=== PATIENT | female | born 1955 ===

== ENCOUNTER 2018-10-02 19:59 | Inpatient (IN) | payer MEDICAID ==
[2018-10-02] MEDS ORDERED: Albuterol-Ipratrop 3 mg / 0.5 (3 ml) UD ONE ×3 (20:16→22:09)
[2018-10-02] MEDS ORDERED: Albuterol-Ipratrop 3 mg / 0.5 (3 ml) UD INH STA ×2 (20:55→21:53)
[2018-10-02 21:04] LABS: BASO # 0.1 K/uL (0.0-0.2); BASO % 0.7 % (0.0-2.0); EOS # 0.7 K/uL (0.0-0.7); EOS % 8.6 % (0.0-4.0); LYMPH # 1.6 K/uL (1.0-4.3); LYMPH % 20.1 % (20.0-40.0); MEAN CORPUSCULAR HEMOGLOBIN 28.3 pg (27.0-31.0); MEAN CORPUSCULAR HGB CONC 33.7 g/dL (33.0-37.0); MEAN PLATELET VOLUME 9.1 fL (7.2-11.7); MONO # 0.7 K/uL (0.0-0.8); MONO % 9.2 % (0.0-10.0); NEUT # 4.9 K/uL (1.8-7.0); NEUT % 61.4 % (50.0-75.0); RBC 4.94 Mil/uL (3.80-5.20); RED CELL DISTRIBUTION WIDTH 12.6 % (11.5-14.5)
[2018-10-02 21:05] LABS: MEAN CELL VOLUME 84.2 fL (81.0-99.0)
[2018-10-02 21:19] LABS: ALB/GLOB RATIO 1.6 (1.0-2.1); ALBUMIN 4.6 g/dL (3.5-5.0); ALT/SGPT 60 U/L (9-52); AST/SGOT 44 U/L (14-36); BLOOD UREA NITROGEN 18 mg/dL (7-17); CALCIUM 9.5 mg/dl (8.6-10.4); GFR NON-AFRICAN AMERICAN > 60
[2018-10-02 21:27] LABS: B-TYPE NATRIURETIC PEPTIDE 33.3 pg/mL (0-900)
--- NOTE | 2018-10-02 21:51 | C.PDOC ---
History Of Present Illness 63 year old female presents to the ER with a complaint of cough, wheezing, and SOB for the past 3 days. Patient smokes a pack a day x40 years. Denies fever. Time Seen by Provider: 10/02/18 20:47 Chief Complaint (Nursing): Shortness Of Breath History Per: Patient History/Exam Limitations: no limitations Onset/Duration Of Symptoms: Days (3) Current Symptoms Are (Timing): Still Present Current Respiratory Medications: See Home Med List Associated Symptoms: Other (Cough, Wheezing, SOB). denies: Fever Recent travel outside of the [place]: No Past Medical History Reviewed: Historical Data, Nursing Documentation, Vital Signs Vital Signs: Last Vital Signs Temp 99.2 F 10/02/18 20:16 Pulse 108 H 10/02/18 20:16 Resp 24 10/02/18 20:16 BP 137/82 10/02/18 20:16 Pulse Ox 96 10/02/18 20:16 - Medical History PMH: Arthritis (RA), Asthma, Colonic Polyps, Diabetes, Gastritis, Hyperlipidemia, Osteoporosis Family History: States: Unknown Family Hx - Social History Hx Tobacco Use: Yes Hx Alcohol Use: No Hx Substance Use: No - Immunization History Hx Tetanus Toxoid Vaccination: No Hx Influenza Vaccination: Yes Hx Pneumococcal Vaccination: No Review Of Systems Constitutional: Negative for: Fever, Chills Cardiovascular: Negative for: Chest Pain, Palpitations Respiratory: Positive for: Cough, Shortness of Breath, Wheezing Gastrointestinal: Negative for: Nausea, Vomiting Neurological: Negative for: Weakness, Numbness Physical Exam - Physical Exam Appears: Non-toxic, Other (Thin, Smells of cigarettes) Skin: Normal Color, Warm, Dry Head: Atraumatic, Normacephalic Eye(s): bilateral: Normal Inspection Oral Mucosa: Moist Neck: Normal, Supple Chest: Symmetrical, No Tenderness Cardiovascular: Rhythm Regular Respiratory: No Rales, Rhonchi (Scattered), Wheezing, Other (Moderate air movement) Gastrointestinal/Abdominal: No Soft, Tenderness Neurological/Psych: Oriented x3, Normal Speech ED Course And Treatment - Laboratory Results Result Diagrams: 10/02/18 21:00 10/02/18 21:00 Lab Interpretation: Normal (trop/bnp neg.) ECG: Interpreted By La ECG Rhythm: Sinus Rhythm ECG Interpretation: Normal Rate From EC O2 Sat by Pulse Oximetry: 96 (Room air) Pulse Ox Interpretation: Normal - Radiology CXR: Interpreted by Me CXR Interpretation: Yes: Other (+ hyperinflated, no pna/pnx) Reevaluation Time: 21:52 (louder rhonci and wheezing but with better air movement) Reassessment Condition: Improved - Physician Consult Information Outcome Of Conversation: [id number]: d/w Dr. Cardona- Hospitalist covering pts for Dr. Dmitri Robledo ok to admit. Critical Care Time - Critical Care Note Total Time (in mins): 90 Documented critical care: time excludes all time spent performing seperately billable procedures. Medical Decision Making Medical Decision Makin pk/yrs, 1ppd defer abx for now. Disposition Doctor Will See Patient In The: Hospital Counseled Patient/Family Regarding: Studies Performed, Diagnosis - Disposition Disposition: HOSPITALIZED Disposition Time: 21:53 Condition: GOOD - Clinical Impression Clinical Impression: COPD exacerbation - Scribe Statement The provider has reviewed the documentation as recorded by the Scribe Lefty Plunkett All medical record entries made by the Scribe were at my direction and persona lly dictated by me. I have reviewed the chart and agree that the record accurately reflects my personal performance of the history, physical exam, medical decision making, and the department course for this patient. I have also personally directed, reviewed, and agree with the discharge instructions and disposition.
--- NOTE | 2018-10-03 00:45 | CP.PCM.HP ---
<Clay Yost - Last Filed: 10/03/18 06:58> History of Present Illness - History of Present Illness History of Present Illness: CC "shortness of breath" HPI: Patient is a 63 year old female with history of RA, DM, osteopenia, COPD, GERD who presents for 2 week history of progressively worsening shortness of breath with wheezing. She states she feels congestion in her chest but her cough is dry and nonproductive in nature. She also complains of back pain related to her rheumatoid arthritis. She denies fevers, chills, headache, dizziness, chest pain, palpitations, abdominal pain, nausea, vomiting, diarrhea, constipation, leg pain, leg swelling. She admits to weight loss of 10lbs over the past year. She states she traveled to [place] in July for her sister's and has been short of breath since. She initially went to her PMD who gave her a cough syrup which improved her symptoms, but over the past 2 weeks her symptoms have only worsened. She recently received pneumonia and flu vaccine. PMD: Dr. Jimbo Robledo PMH: RA, DM, osteopenia, COPD, GERD PSH: hernia Social hx: smokes 1ppd x40 years, denies alcohol or drug use. Family hx: Mother of DM at age 85, Father of stroke at age 84. Home meds: Ventolin, Glimepiride 4mg, Omeprazole 20mg, Metformin 500mg, Tramadol 50mg, Multivitamin, Baclofen 10mg, Vitamin D 5000 units, Fenofibrate 134mg Allergies: NKDA Present on Admission - Present on Admission Any Indicators Present on Admission: No Review of Systems - Constitutional Constitutional: Weight Loss (10lb weight loss over the past year). absent: Chills, Fever, Headache - EENT Eyes: absent: Blurred Vision, Loss of Vision Nose/Mouth/Throat: absent: Nasal Congestion, Sore Throat - Cardiovascular Cardiovascular: Dyspnea. absent: Palpitations, Syncope - Respiratory Respiratory: Cough, Dyspnea, Chest Congestion - Gastrointestinal Gastrointestinal: absent: Abdominal Pain, Diarrhea, Nausea, Vomiting - Genitourinary Genitourinary: absent: Difficulty Urinating, Dysuria - Musculoskeletal Musculoskeletal: Back Pain. absent: Neck Pain, Numbness, Stiffness, Tingling - Neurological Neurological: absent: Confusion, Numbness, Syncope, Tingling - Psychiatric Psychiatric: absent: Anxiety, Depression Past Patient History - Infectious Disease Hx of Infectious Diseases: None - Past Social History Smoking Status: Heavy Smoker > 10 Cigarettes Daily - CARDIAC Hx Cardiac Disorders: Yes - PULMONARY Hx Asthma: Yes - ENDOCRINE/METABOLIC Hx Endocrine Disorders: Yes Hx Diabetes Mellitus Type 2: Yes - MUSCULOSKELETAL/RHEUMATOLOGICAL Hx Arthritis: Yes (RA) Hx Osteoporosis: Yes - GASTROINTESTINAL Hx Gastritis: Yes - PSYCHIATRIC Hx Substance Use: No - SURGICAL HISTORY Hx Surgeries: Yes Other/Comment: Uterine Fibroid removal - ANESTHESIA Hx Anesthesia: Yes Hx Anesthesia Reactions: No Meds Allergies/Adverse Reactions: Allergies Allergy/AdvReac Type Severity Reaction Status Date / Time No Known Allergies Allergy Verified 12/13/16 10:47 Physical Exam - Constitutional Appears: Non-toxic Additional comments: Patient appears short of breath - Head Exam Head Exam: ATRAUMATIC, NORMOCEPHALIC - Eye Exam Eye Exam: EOMI. absent: Conjunctival injection, Periorbital swelling - ENT Exam ENT Exam: Mucous Membranes Moist - Neck Exam Neck exam: Positive for: Full Rom. Negative for: Lymphadenopathy, Tenderness, Thyromegaly - Respiratory Exam Respiratory Exam: Wheezes (diffusely ). absent: Chest Wall Tenderness, Rales, Rhonchi, Respiratory Distress, Stridor - Cardiovascular Exam Cardiovascular Exam: Tachycardia, +S1, +S2. absent: Gallop, Rubs, Systolic Murmur - GI/Abdominal Exam GI & Abdominal Exam: Normal Bowel Sounds, Soft. absent: Distended, Firm, Guarding, Hernia, Rigid, Tenderness - Extremities Exam Extremities exam: Positive for: normal capillary refill, pedal pulses present. Negative for: calf tenderness, pedal edema - Back Exam Back exam: absent: CVA tenderness (L), CVA tenderness (R), rash noted Additional comments: reproducible tenderness on back near lower thoracic and upper lumbar region along spine - Neurological Exam Neurological exam: Alert, CN II-XII Intact, Oriented x3 - Psychiatric Exam Psychiatric exam: Normal Affect, Normal Mood - Skin Skin Exam: Dry, Intact, Warm Results - Vital Signs Recent Vital Signs: Last Vital Signs Temp 98.1 F 10/02/18 23:34 Pulse 110 H 10/02/18 23:34 Resp 26 H 10/02/18 23:34 BP 142/80 10/02/18 23:34 Pulse Ox 93 L 10/02/18 23:34 - Labs Result Diagrams: 10/03/18 06:04 10/03/18 06:04 Labs: Laboratory Results - last 24 hr 10/02/18 10/02/18 10/02/18 20:16 21:00 21:00 WBC 8.0 RBC 4.94 Hgb 14.0 Hct 41.6 MCV 84.2 D MCH 28.3 MCHC 33.7 RDW 12.6 Plt Count 172 MPV 9.1 Neut % (Auto) 61.4 Lymph % (Auto) 20.1 [place] % (Auto) 9.2 Eos % (Auto) 8.6 H Baso % (Auto) 0.7 Neut # (Auto) 4.9 Lymph # (Auto) 1.6 [place] # (Auto) 0.7 Eos # (Auto) 0.7 Baso # (Auto) 0.1 Sodium 138 Potassium 3.7 Chloride 102 Carbon Dioxide 26 Anion Gap 14 BUN 18 H Creatinine 0.7 Est GFR ( Amer) > 60 Est GFR (Non-Af Amer) > 60 POC Glucose (mg/dL) 117 H Random Glucose 151 H Calcium 9.5 Total Bilirubin 0.6 AST 44 H ALT 60 H Alkaline Phosphatase 83 Troponin I < 0.0120 NT-Pro-B Natriuret Pep 33.3 Total Protein 7.6 Albumin 4.6 Globulin 2.9 Albumin/Globulin Ratio 1.6 Assessment & Plan - Assessment and Plan (Free Text) Assessment: 63 year old female with history of RA, DM, osteopenia, COPD, GERD who presents for 2 week history of progressively worsening shortness of breath and cough. Plan: Shortness of breath Solumedrol 40mg IV Q12 Duonebs Q6 ABELARDO Albuterol Q3 PRN Pulmicort 0.5mg BID Doxycycline 100mg PO BID Will need to follow up with pattern carrier outpatient for PFTs, Advair and Spiriva on discharge as patient is only on Ventolin as needed. CXR: hyperinflated Hx of DM Type 2 Low dose ISS Accucheck ACHS Amaryl 2mg BID Metformin 500mg daily Hx of RA Tramadol PRN Hx of HLD Fenofibrate 145mg QPM Hx of nicotine dependence Nicotine patch PPX: Heparin Pepcid Heart healthy diet, 2g Na Case discussed with Dr. Dulce Yost, PGY1 <DulceLux P - Last Filed: 10/03/18 07:58> Results - Vital Signs Recent Vital Signs: Last Vital Signs Temp 97.4 F L 10/03/18 04:40 Pulse 99 H 10/03/18 04:40 Resp 20 10/03/18 04:40 BP 120/74 10/03/18 04:40 Pulse Ox 96 10/03/18 04:40 - Labs Result Diagrams: 10/03/18 06:04 10/03/18 06:04 Labs: Laboratory Results - last 24 hr 10/02/18 10/02/18 10/02/18 20:16 21:00 21:00 WBC 8.0 RBC 4.94 Hgb 14.0 Hct 41.6 MCV 84.2 D MCH 28.3 MCHC 33.7 RDW 12.6 Plt Count 172 MPV 9.1 Neut % (Auto) 61.4 Lymph % (Auto) 20.1 [place] % (Auto) 9.2 Eos % (Auto) 8.6 H Baso % (Auto) 0.7 Neut # (Auto) 4.9 Lymph # (Auto) 1.6 [place] # (Auto) 0.7 Eos # (Auto) 0.7 Baso # (Auto) 0.1 Sodium 138 Potassium 3.7 Chloride 102 Carbon Dioxide 26 Anion Gap 14 BUN 18 H Creatinine 0.7 Est GFR ( Amer) > 60 Est GFR (Non-Af Amer) > 60 POC Glucose (mg/dL) 117 H Random Glucose 151 H Calcium 9.5 Phosphorus Magnesium Total Bilirubin 0.6 AST 44 H ALT 60 H Alkaline Phosphatase 83 Troponin I < 0.0120 NT-Pro-B Natriuret Pep 33.3 Total Protein 7.6 Albumin 4.6 Globulin 2.9 Albumin/Globulin Ratio 1.6 10/03/18 10/03/18 06:04 06:04 WBC 6.4 RBC 4.82 Hgb 13.7 Hct 39.8 MCV 82.6 MCH 28.4 MCHC 34.4 RDW 12.4 Plt Count 165 MPV 8.9 Neut % (Auto) 86.7 H Lymph % (Auto) 11.8 L [place] % (Auto) 1.2 Eos % (Auto) 0.2 Baso % (Auto) 0.1 Neut # (Auto) 5.6 Lymph # (Auto) 0.8 L [place] # (Auto) 0.1 Eos # (Auto) 0.0 Baso # (Auto) 0.0 Sodium 136 Potassium 4.0 Chloride 99 Carbon Dioxide 25 Anion Gap 17 BUN 18 H Creatinine 0.5 L Est GFR ( Amer) > 60 Est GFR (Non-Af Amer) > 60 POC Glucose (mg/dL) Random Glucose 288 H D Calcium 9.3 Phosphorus 3.5 Magnesium 1.6 Total Bilirubin 0.5 AST 40 H ALT 64 H Alkaline Phosphatase 78 Troponin I NT-Pro-B Natriuret Pep Total Protein 7.2 Albumin 4.3 Globulin 2.8 Albumin/Globulin Ratio 1.6 Attending/Attestation - Attestation I have personally seen and examined this patient.: Yes I have fully participated in the care of the patient.: Yes I have reviewed all pertinent clinical information: Yes Notes (Text): 10/03/18 07:55 * Copd exacerbation, bronchitis and emphysematous chest * NIDDM * Tobacco abuse * H/o RA * H/o htn Plan * Counselled about tobacco cessation * Will need inhaled steroid/bronchodilator combination upon discharge with out patient pulm f/u for PFT's * In patient systemic steroid, inhaled steroid, scheduled and prn broncodialators, oral doxycycline * GI/DVT prophylaxis * Home meds, insulin sliding scale * See orders for detail.
[2018-10-03 00:50] VITALS: RESP 20
[2018-10-03] MEDS ORDERED: Albuterol 0.042% Inhal Sol (1.25 mg/3 mL) UD INH PRN (01:01)
[2018-10-03 06:12] LABS: BASO % 0.1 % (0.0-2.0); EOS % 0.2 % (0.0-4.0); HEMOGLOBIN 13.7 g/dL (11.0-16.0); LYMPH # 0.8 K/uL (1.0-4.3); LYMPH % 11.8 % (20.0-40.0); MEAN CELL VOLUME 82.6 fL (81.0-99.0); MEAN CORPUSCULAR HEMOGLOBIN 28.4 pg (27.0-31.0); MEAN CORPUSCULAR HGB CONC 34.4 g/dL (33.0-37.0); MEAN PLATELET VOLUME 8.9 fL (7.2-11.7); MONO # 0.1 K/uL (0.0-0.8); MONO % 1.2 % (0.0-10.0); NEUT # 5.6 K/uL (1.8-7.0); NEUT % 86.7 % (50.0-75.0); RBC 4.82 Mil/uL (3.80-5.20); RED CELL DISTRIBUTION WIDTH 12.4 % (11.5-14.5); WHITE BLOOD COUNT 6.4 K/uL (4.8-10.8)
[2018-10-03 06:27] LABS: ALB/GLOB RATIO 1.6 (1.0-2.1); ALBUMIN 4.3 g/dL (3.5-5.0); ALT/SGPT 64 U/L (9-52); AST/SGOT 40 U/L (14-36); BLOOD UREA NITROGEN 18 mg/dL (7-17); CALCIUM 9.3 mg/dl (8.6-10.4); GFR NON-AFRICAN AMERICAN > 60
[2018-10-03] MEDS ORDERED: Dextrose 50% SYRINGE Inj (50 ml) IV PRN (07:04)
[2018-10-03] MEDS ORDERED: Glucagon Recombinant 1 mg Inj IM PRN (07:04)
--- NOTE | 2018-10-03 08:16 | RAD ---
Date of service: 10/02/2018 PROCEDURE: CHEST RADIOGRAPH, 1 VIEW HISTORY: SOB COMPARISON: 01/17/2018 FINDINGS: LUNGS: Bilateral hyperaeration. No consolidative infiltrate appreciated. PLEURA: No pneumothorax or pleural fluid seen. CARDIOVASCULAR: There is absence of aortic atherosclerotic calcification on x-ray. Normal heart size. No significant appearing pulmonary venous congestion. OSSEOUS STRUCTURES: Mild thoracic spondylosis. Bilateral mild shoulder arthrosis. VISUALIZED UPPER ABDOMEN: Normal. OTHER FINDINGS: None. IMPRESSION: No interval acute cardiopulmonary pathology appreciated. Hyperinflation consistent with background COPD-similar in appearance
[2018-10-03] MEDS: (Novolin R) Insulin Human Regular 100 units/ml vial SC SCH ×4 (08:21→21:57)
--- NOTE | 2018-10-03 10:27 | CP.PCM.PN ---
Subjective - Date & Time of Evaluation Date of Evaluation: 10/03/18 Time of Evaluation: 10:15 - Subjective Subjective: PGY-1 Medicine Progress Note for Dr. Marrero Patient was seen and examined today at bedside in no acute distress. Nurse reports no overnight events. Patient reports improved breathing, but still has persistent pain in her knees from arthritis, headache, and shoulder pain. Denies chest pain, abdominal pain, difficulty urinating, n/v/c/d. She is hesitant to quit smoking despite knowing how it harms her lungs. Objective - Vital Signs/Intake and Output Vital Signs (last 24 hours): Temp Pulse Resp BP Pulse Ox 97.6 F 91 H 20 130/70 96 10/03/18 07:00 10/03/18 07:00 10/03/18 07:00 10/03/18 07:00 10/03/18 07:00 Intake and Output: 10/03/18 10/03/18 06:59 18:59 Intake Total 120 Balance 120 - Medications Medications: Current Medications Acetaminophen (Tylenol 325mg Tab) 650 mg PO Q6 PRN PRN Reason: Pain, Mild (1-3) Albuterol Sulfate (Albuterol 0.042% Inhal Lisa (1.25mg/3ml) Ud) 1.25 mg INH RQ3 PRN PRN Reason: Shortness of Breath Albuterol/Ipratropium (Duoneb 3 Mg/0.5 Mg (3 Ml) Ud) 3 ml INH RQ6 ABELARDO Budesonide (Pulmicort Respules) 0.5 mg INH RQ12 ABELARDO Dextrose (Dextrose 50% Inj) 0 ml IV STAT PRN; Protocol PRN Reason: Hypoglycemia Protocol Dextrose (Glutose 15) 0 gm PO ONCE PRN; Protocol PRN Reason: Hypoglycemia Protocol Doxycycline Hyclate (Doryx) 100 mg PO Q12H ABELARDO; Protocol Last Admin: 10/03/18 01:35 Dose: 100 mg Famotidine (Pepcid) 20 mg PO DAILY ABELARDO Fenofibrate (Tricor) 145 mg PO QPM ABELARDO Glimepiride (Amaryl) 2 mg PO BID ABELARDO Glucagon (Glucagen Diagnostic Kit) 0 mg IM STAT PRN; Protocol PRN Reason: Hypoglycemia Protocol Heparin Sodium (Porcine) (Heparin) 5,000 units SC Q8 ABELARDO Last Admin: 10/03/18 06:37 Dose: 5,000 units Dextrose (Dextrose 5% In Water 1000 Ml) 1,000 mls @ 0 mls/hr IV .Q0M PRN; Protocol PRN Reason: Hypoglycemia Protocol Insulin Human Regular (Novolin R) 0 unit SC ACHS [facility]; Protocol Last Admin: 10/03/18 08:21 Dose: 3 u Metformin HCl (Glucophage) 500 mg PO DAILY [facility] Methylprednisolone (Solu-Medrol) 40 mg IVP Q12 [facility] Nicotine (Nicoderm Cq) 1 patch TD DAILY [facility] Tramadol HCl (Ultram) 50 mg PO DAILY PRN PRN Reason: Pain, moderate (4-7) - Labs Labs: 10/03/18 06:04 10/03/18 06:04 - Constitutional Appears: No Acute Distress, Older Than Stated Age - Head Exam Head Exam: ATRAUMATIC, NORMOCEPHALIC - Eye Exam Eye Exam: EOMI, Normal appearance - ENT Exam ENT Exam: Mucous Membranes Dry - Respiratory Exam Respiratory Exam: Decreased Breath Sounds, Rhonchi, Wheezes. absent: Accessory Muscle Use Additional comments: 2L O2 via NC inspiratory and expiratory wheezes throughout distant breath sounds more prominent in lower lobes - Cardiovascular Exam Cardiovascular Exam: Tachycardia, +S1, +S2. absent: Gallop, Rubs, Murmur - GI/Abdominal Exam GI & Abdominal Exam: Soft, Normal Bowel Sounds. absent: Distended, Firm, Guarding, Tenderness - Extremities Exam Extremities Exam: Normal Capillary Refill. absent: Calf Tenderness Additional comments: IV access in R AC peripheral pulses palpable bilaterally (radial, PT) - Neurological Exam Neurological Exam: Alert, Awake, Normal Gait, Oriented x3 - Psychiatric Exam Psychiatric exam: Anxious - Skin Skin Exam: Dry, Normal Color Assessment and Plan - Assessment and Plan (Free Text) Assessment: 63yoF PMH COPD, RA, DM, osteopenia, GERD admitted for COPD exacerbation. Plan: COPD exacerbation - CXR (10/02): no interval acute cardiopulmonary pathology. Hyperinflation. - EKG: sinus tachy @ 98 - Duoneb x2, Solumedrol given in ED - f/u Legionella, Strep - Albuterol q3 prn - Duoneb rq6 - Solumedrol 40mg IVP q12 - Pulmicort 0.5mg INH rq12 - Doxycycline 100mg po q12 (started 10/03) - Flonase daily Diabetes Mellitus - Amaryl 2mg po bid - Metformin 500mg po daily - Accucheck ACHS - low dose ISS - hypoglycemia protocol Rheumatoid Arthritis - Tylenol 650mg po q6 prn - Tramadol 50mg po daily prn Hyperlipidemia - Fenofibrate 145mg po HS Tobacco use - Nicotine patch 14mg/day 1 patch td daily - educated on cessation. not interested PPx - DVT: Heparin 5000u sc q8, SCDs - GI: Pepcid 20mg po daily - Diet: HHD, 2g Na. [employer]m [employer] referral for recent weight loss Dispo: Patient can potentially go home tomorrow. Patient MUST follow up with PMD as she is only on Ventolin prn at the moment. That is not sufficient given her extensive tobacco history and severity of emphysema/COPD. d/w Dr. Elida Combs PGY-1
[2018-10-03] MEDS: MethylPREDNISolone 40 mg Vial IVP SCH ×2 (10:31→22:01)
[2018-10-03] MEDS: Fluticasone Nasal 50 mcg/Spray NAS SCH (11:38)
[2018-10-03] MEDS: Budesonide 0.5 mg/2 ml Inhal Susp UD INH SCH (19:29)
[2018-10-03] MEDS: Albuterol-Ipratrop 3 mg / 0.5 (3 ml) UD INH SCH (19:29)
--- NOTE | 2018-10-03 22:21 | CARD ---
APPROVED REPORT Date of service: 10/02/2018 EKG Measurement Heart [id number] <Conclusion> Normal sinus rhythm Left axis deviation Low voltage QRS Abnormal ECG
[2018-10-04] MEDS: Albuterol-Ipratrop 3 mg / 0.5 (3 ml) UD INH SCH ×2 (01:45→08:41)
[2018-10-04 07:03] LABS: BASO % 0.2 % (0.0-2.0); HEMOGLOBIN 13.7 g/dL (11.0-16.0); LYMPH # 1.4 K/uL (1.0-4.3); LYMPH % 11.5 % (20.0-40.0); MEAN CELL VOLUME 84.1 fL (81.0-99.0); MEAN CORPUSCULAR HEMOGLOBIN 28.3 pg (27.0-31.0); MEAN CORPUSCULAR HGB CONC 33.6 g/dL (33.0-37.0); MEAN PLATELET VOLUME 9.3 fL (7.2-11.7); MONO # 0.6 K/uL (0.0-0.8); MONO % 5.4 % (0.0-10.0); NEUT % 82.9 % (50.0-75.0); RBC 4.85 Mil/uL (3.80-5.20); WHITE BLOOD COUNT 12.1 K/uL (4.8-10.8)
[2018-10-04 07:35] LABS: ALB/GLOB RATIO 1.5 (1.0-2.1); ALBUMIN 4.4 g/dL (3.5-5.0); ALT/SGPT 48 U/L (9-52); AST/SGOT 27 U/L (14-36); BLOOD UREA NITROGEN 22 mg/dL (7-17); CALCIUM 9.2 mg/dl (8.6-10.4); GFR NON-AFRICAN AMERICAN > 60
[2018-10-04] MEDS: (Novolin R) Insulin Human Regular 100 units/ml vial SC SCH ×2 (08:01→12:28)
[2018-10-04 08:36] VITALS: BP 125/73; PULSE 77; TEMP 97.9; O2SAT 94
[2018-10-04] MEDS: Budesonide 0.5 mg/2 ml Inhal Susp UD INH SCH (08:41)
[2018-10-04] MEDS ORDERED: guaiFENesin DM 200 mg-20 mg/10 ml UD PO PRN (09:40)
[2018-10-04] MEDS: Fluticasone Nasal 50 mcg/Spray NAS SCH (09:48)
[2018-10-04] MEDS: MethylPREDNISolone 40 mg Vial IVP SCH (09:49)
--- NOTE | 2018-10-04 11:43 | CP.PCM.DIS ---
<CombsSana Curtis - Last Filed: 10/04/18 13:31> Provider - Provider Date of Admission: 10/02/18 21:54 Attending physician: Lux Cardona MD Consults: 10/03/18 03:07 Inpatient [employer] Core Measures Referral Routine Comment: C/O SOB upon Admission. Physician Instructions: Reason For Exam: SOB Time Spent in preparation of Discharge (in minutes): 45 Diagnosis - Discharge Diagnosis (1) COPD exacerbation Status: Acute Hospital Course - Lab Results Lab Results: Most Recent Lab Values WBC 12.1 K/uL (4.8-10.8) H D 10/04/18 06:56 RBC 4.85 Mil/uL (3.80-5.20) 10/04/18 06:56 Hgb 13.7 g/dL (11.0-16.0) 10/04/18 06:56 Hct 40.8 % (34.0-47.0) 10/04/18 06:56 MCV 84.1 fL (81.0-99.0) 10/04/18 06:56 MCH 28.3 pg (27.0-31.0) 10/04/18 06:56 MCHC 33.6 g/dL (33.0-37.0) 10/04/18 06:56 RDW 13.0 % (11.5-14.5) 10/04/18 06:56 Plt Count 205 K/uL (130-400) 10/04/18 06:56 MPV 9.3 fL (7.2-11.7) 10/04/18 06:56 Neut % (Auto) 82.9 % (50.0-75.0) H 10/04/18 06:56 Lymph % (Auto) 11.5 % (20.0-40.0) L 10/04/18 06:56 [place] % (Auto) 5.4 % (0.0-10.0) 10/04/18 06:56 Eos % (Auto) 0.0 % (0.0-4.0) 10/04/18 06:56 Baso % (Auto) 0.2 % (0.0-2.0) 10/04/18 06:56 Neut # (Auto) 10.0 K/uL (1.8-7.0) H 10/04/18 06:56 Lymph # (Auto) 1.4 K/uL (1.0-4.3) 10/04/18 06:56 [place] # (Auto) 0.6 K/uL (0.0-0.8) 10/04/18 06:56 Eos # (Auto) 0.0 K/uL (0.0-0.7) 10/04/18 06:56 Baso # (Auto) 0.0 K/uL (0.0-0.2) 10/04/18 06:56 Sodium 137 mmol/L (132-148) 10/04/18 06:56 Potassium 4.1 mmol/L (3.6-5.2) 10/04/18 06:56 Chloride 102 mmol/L (98-107) 10/04/18 06:56 Carbon Dioxide 24 mmol/L (22-30) 10/04/18 06:56 Anion Gap 15 (10-20) 10/04/18 06:56 BUN 22 mg/dL (7-17) H 10/04/18 06:56 Creatinine 0.5 mg/dL (0.7-1.2) L 10/04/18 06:56 Est GFR ( Amer) > 60 10/04/18 06:56 Est GFR (Non-Af Amer) > 60 10/04/18 06:56 POC Glucose (mg/dL) 265 mg/dL (65-110) H 10/04/18 06:15 Random Glucose 258 mg/dL (65-105) H 10/04/18 06:56 Calcium 9.2 mg/dl (8.6-10.4) 10/04/18 06:56 Phosphorus 3.5 mg/dL (2.5-4.5) 10/03/18 06:04 Magnesium 1.6 mg/dL (1.6-2.3) 10/03/18 06:04 Total Bilirubin 0.5 mg/dL (0.2-1.3) 10/04/18 06:56 AST 27 U/L (14-36) 10/04/18 06:56 ALT 48 U/L (9-52) 10/04/18 06:56 Alkaline Phosphatase 78 U/L (38-126) 10/04/18 06:56 Troponin I < 0.0120 ng/mL (0.00-0.120) 10/02/18 21:00 NT-Pro-B Natriuret Pep 33.3 pg/mL (0-900) 10/02/18 21:00 Total Protein 7.3 g/dL (6.3-8.3) 10/04/18 06:56 Albumin 4.4 g/dL (3.5-5.0) 10/04/18 06:56 Globulin 2.9 gm/dL (2.2-3.9) 10/04/18 06:56 Albumin/Globulin Ratio 1.5 (1.0-2.1) 10/04/18 06:56 - Hospital Course Hospital Course: Patient is a 63 year old female with history of RA, DM, osteopenia, COPD, GERD who presents for 2 week history of progressively worsening shortness of breath with wheezing. She states she feels congestion in her chest but her cough is dry and nonproductive in nature. She also complains of back pain related to her rheumatoid arthritis. She denies fevers, chills, headache, dizziness, chest pain, palpitations, abdominal pain, nausea, vomiting, diarrhea, constipation, leg pain, leg swelling. She admits to weight loss of 10lbs over the past year. She states she traveled to [place] in July for her sister's and has been short of breath since. She initially went to her PMD who gave her a cough syrup which improved her symptoms, but over the past 2 weeks her symptoms have only worsened. She recently received pneumonia and flu vaccine. CXR showed no interval acute cardiopulmonary pathology, hyperinflation consistent with COPD. Duonebs x2 and Solumedrol were given in the ED. She was started on Duonebs and Solumderol ATC with Albuterol rescue fro breathing. We also gave her Doxycycline while hospitalized. Pulmicort was added the second day to aid her respirations. To stop her from smoking, we started her on nicotine patch, which continued into discharge since she's understanding of how it can worsen her COPD. Her chronic issues of DM, RA, and HLD were controlled on her home medications. She is breathing much better and feels ready to go home. Primary Diagnosis: COPD exacerbation Patient is clear for discharge per Dr. Marrero. She is being started on a few new medications and should take them as directed: Albuterol (Ventolin). This is her rescue inhaler. Take 1 puff as needed Pulmicort (budesonide) 90mcg. This is her maintenance inhaler. Take 1 puff every day even if she's not having trouble breathing Spiriva (tiotropium) 18mcg. This is another maintenance inhaler. Take 1 puff every day even if she's not having trouble breathing Nicotine patch 14mg/24hr. Switch out the patch once a day She is to follow up with her PMD Dr. Jimbo Robledo within 1 week to discuss continuing her COPD medications as well as continuing her smoking cessation. She must stop smoking or she will have more breathing problems. If her condition worsens and she is unable to breath, please return to the ED. This was discussed with patient with at bedside through [employer] Naur[place] speaker child and youth program assistant. The patient understood and agreed with the plan. This is a summary of the hospital course. Please refer to the EMR for more detail. - Date & Time of H&P Date of H&P: 10/04/18 Time of H&P: 10:30 Discharge Exam - Head Exam Head Exam: ATRAUMATIC, NORMOCEPHALIC - Eye Exam Eye Exam: EOMI, Normal appearance, PERRL - ENT Exam ENT Exam: Mucous Membranes Moist - Respiratory Exam Respiratory Exam: Decreased Breath Sounds, Wheezes (expiratory). absent: Accessory Muscle Use, Rales, Rhonchi, Respiratory Distress Additional comments: 2L O2 via NC prn - Cardiovascular Exam Cardiovascular Exam: REGULAR RHYTHM, +S1, +S2. absent: Gallop, Rubs, Systolic Murmur - GI/Abdominal Exam GI & Abdominal Exam: Normal Bowel Sounds, Soft. absent: Distended, Firm, Guarding, Tenderness - Extremities Exam Extremities exam: normal capillary refill, pedal pulses present Additional comments: radial, DP pulses palpable - Neurological Exam Neurological exam: Alert, CN II-XII Intact, Normal Gait, Oriented x3, Reflexes Normal - Psychiatric Exam Psychiatric exam: Normal Affect, Normal Mood - Skin Skin Exam: Dry, Normal Color Discharge Plan - Discharge Medications Prescriptions: RX: Albuterol Sulfate [Ventolin Hfa] 1 puff IH PRN PRN #1 [id number] PRN Reason: Shortness Of Breath Budesonide [Pulmicort Flexhaler] 90 mcg IH DAILY #1 aer.pow.[id number] RX: Nicotine 14 mg/24 hr [Nicoderm CQ] 1 patch TD DAILY #21 patch Tiotropium [Spiriva] 18 mcg IH DAILY #1 cap - Follow Up Plan Condition: GOOD Disposition: HOME/ ROUTINE Instructions: Heart Healthy Diet, Quitting Smoking for Older Adults, Diabetes Diet , Exacerbation of COPD (DC), Albuterol, Nicotine, Tiotropium, Budesonide (Oral Inhalation), Constipation (GEN) Additional Instructions: Patient is clear for discharge per Dr. Marrero. She is being started on a few new medications and should take them as directed: Albuterol (Ventolin). This is her rescue inhaler. Take 1 puff as needed Pulmicort (budesonide) 90mcg. This is her maintenance inhaler. Take 1 puff every day even if she's not having trouble breathing Spiriva (tiotropium) 18mcg. This is another maintenance inhaler. Take 1 puff every day even if she's not having trouble breathing Nicotine patch 14mg/24hr. Switch out the patch once a day She is to follow up with her PMD Dr. Jimbo Robledo within 1 week to discuss continuing her COPD medications as well as continuing her smoking cessation. She must stop smoking or she will have more breathing problems. If her condition worsens and she is unable to breath, please return to the ED. This was discussed with patient with at bedside through [employer] [place] speaker child and youth program assistant. The patient understood and agreed with the plan. El paciente est listo para el kelly por el Dr. Marrero. Louise est empezando a micaela algunos medicamentos nuevos y debe tomarlos segn las indicaciones: Albuterol (Ventolin). Harper es main inhalador de rescate. Christelle 1 bocanada segn sea necesario Pulmicort (budesonida) 90 mcg. Harper es main inhalador de mantenimiento. Christelle 1 bocanada todos los cervantes, incluso si no tiene problemas para respirar Spiriva (tiotropio) 18 mcg. Harper es otro inhalador de mantenimiento. Christelle 1 bocanada todos los cervantes, incluso si no tiene problemas para respirar Parche de nicotina 14mg / 24hr. Cambia el parche maxine vez al da. Louise debe hacer un seguimiento con main PMD, el Dr. Choi Hector, dentro de 1 semana para hablar sobre mechanic welder continuar con abe medicamentos para la EPOC y sobre mechanic welder dejar de fumar. Louise debe dejar de fumar o tendr ms problemas respiratorios. Si main condicin empeora y no puede respirar, por favor regrese al servicio de urgencias. [place] fue discutido con el paciente con el esposo en la cama a travs de un traductor nativo de espaol El paciente entendi y estuvo de acuerdo con el plan. Referrals: Jimbo Robledo MD [Staff Provider] - 10/11/18 <Bautista Marrero - Last Filed: 10/05/18 08:04> Provider - Provider Date of Admission: 10/02/18 21:54 Attending physician: Lux Cardona MD Consults: 10/03/18 03:07 Inpatient [employer] Core Measures Referral Routine Comment: C/O SOB upon Admission. Physician Instructions: Reason For Exam: SOB Hospital Course - Lab Results Lab Results: Most Recent Lab Values WBC 12.1 K/uL (4.8-10.8) H D 10/04/18 06:56 RBC 4.85 Mil/uL (3.80-5.20) 10/04/18 06:56 Hgb 13.7 g/dL (11.0-16.0) 10/04/18 06:56 Hct 40.8 % (34.0-47.0) 10/04/18 06:56 MCV 84.1 fL (81.0-99.0) 10/04/18 06:56 MCH 28.3 pg (27.0-31.0) 10/04/18 06:56 MCHC 33.6 g/dL (33.0-37.0) 10/04/18 06:56 RDW 13.0 % (11.5-14.5) 10/04/18 06:56 Plt Count 205 K/uL (130-400) 10/04/18 06:56 MPV 9.3 fL (7.2-11.7) 10/04/18 06:56 Neut % (Auto) 82.9 % (50.0-75.0) H 10/04/18 06:56 Lymph % (Auto) 11.5 % (20.0-40.0) L 10/04/18 06:56 [place] % (Auto) 5.4 % (0.0-10.0) 10/04/18 06:56 Eos % (Auto) 0.0 % (0.0-4.0) 10/04/18 06:56 Baso % (Auto) 0.2 % (0.0-2.0) 10/04/18 06:56 Neut # (Auto) 10.0 K/uL (1.8-7.0) H 10/04/18 06:56 Lymph # (Auto) 1.4 K/uL (1.0-4.3) 10/04/18 06:56 [place] # (Auto) 0.6 K/uL (0.0-0.8) 10/04/18 06:56 Eos # (Auto) 0.0 K/uL (0.0-0.7) 10/04/18 06:56 Baso # (Auto) 0.0 K/uL (0.0-0.2) 10/04/18 06:56 Sodium 137 mmol/L (132-148) 10/04/18 06:56 Potassium 4.1 mmol/L (3.6-5.2) 10/04/18 06:56 Chloride 102 mmol/L (98-107) 10/04/18 06:56 Carbon Dioxide 24 mmol/L (22-30) 10/04/18 06:56 Anion Gap 15 (10-20) 10/04/18 06:56 BUN 22 mg/dL (7-17) H 10/04/18 06:56 Creatinine 0.5 mg/dL (0.7-1.2) L 10/04/18 06:56 Est GFR ( Amer) > 60 10/04/18 06:56 Est GFR (Non-Af Amer) > 60 10/04/18 06:56 POC Glucose (mg/dL) 401 mg/dL (65-110) H* 10/04/18 11:41 Random Glucose 258 mg/dL (65-105) H 10/04/18 06:56 Calcium 9.2 mg/dl (8.6-10.4) 10/04/18 06:56 Phosphorus 3.5 mg/dL (2.5-4.5) 10/03/18 06:04 Magnesium 1.6 mg/dL (1.6-2.3) 10/03/18 06:04 Total Bilirubin 0.5 mg/dL (0.2-1.3) 10/04/18 06:56 AST 27 U/L (14-36) 10/04/18 06:56 ALT 48 U/L (9-52) 10/04/18 06:56 Alkaline Phosphatase 78 U/L (38-126) 10/04/18 06:56 Troponin I < 0.0120 ng/mL (0.00-0.120) 10/02/18 21:00 NT-Pro-B Natriuret Pep 33.3 pg/mL (0-900) 10/02/18 21:00 Total Protein 7.3 g/dL (6.3-8.3) 10/04/18 06:56 Albumin 4.4 g/dL (3.5-5.0) 10/04/18 06:56 Globulin 2.9 gm/dL (2.2-3.9) 10/04/18 06:56 Albumin/Globulin Ratio 1.5 (1.0-2.1) 10/04/18 06:56 Mycoplasma pneumon IgM Negative (NEGATIVE) 10/03/18 10:56 Attending/Attestation - Attestation I have personally seen and examined this patient.: Yes I have fully participated in the care of the patient.: Yes I have reviewed all pertinent clinical information, including history, physical exam and plan: Yes Notes (Text): 10/05/18 08:02 Medical attending: Patient was seen and examined by me. And I reviewed the above note by the resident and agree with the above. We saw patient together We used a acquisition associate to help us Patient will be discharged today She will need to be on Pulmicort as well as Spiriva We emphasized to her that the pulmicort and spiriva are NOT rescue inhalers but are meant to help maintain her from COPD exacerbations. Also we explained that if she continues smoking that she will likley again have more episodes of shortness of breath Hopefully she will stop smoking Bautista Marrero
== END 2018-10-04 14:08 | disposition home or self-care (01) | DRG 88 ==
LOC: C.ER 19:59 → C.9E 21:54 → C.6T 22:50
PROVIDERS: ADMIT Internal Medicine; ATTEND Internal Medicine
DX: J44.1 Chronic obstructive pulmonary disease with (acute) exacerbation (principal); E11.9 Type 2 diabetes mellitus without complications; F17.210 Nicotine dependence, cigarettes, uncomplicated; E78.5 Hyperlipidemia, unspecified; K21.9 Gastro-esophageal reflux disease without esophagitis; M06.9 Rheumatoid arthritis, unspecified; M81.0 Age-related osteoporosis without current pathological fracture; Z79.84 Long term (current) use of oral hypoglycemic drugs; Z86.010 Personal history of colon polyps; Z82.3 Family history of stroke; Z83.3 Family history of diabetes mellitus

== ENCOUNTER 2019-01-16 10:52 | Emergency (ER) | payer OTHER, MEDICAID ==
[2019-01-16 11:10] VITALS: BP 147/82; PULSE 82; RESP 14; TEMP 97.6; O2SAT 97
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
--- NOTE | 2019-01-16 14:27 | RAD ---
Date of service: 01/16/2019 PROCEDURE: Cervical Spine Radiographs. HISTORY: Pain. COMPARISON: None available. TECHNIQUE: 3 views obtained. FINDINGS: BONES: There is normal alignment of the cervical vertebral bodies. There is loss of normal cervical lordosis. Vertebral height is normal. Bone mineralization is normal. There is no acute fracture or traumatic anterior listhesis. The craniocervical junction is normal. The atlantoaxial joint normal. DISC SPACES: There is mild degenerative disc disease at C5-6 with anterior spurring, reduced disc height and mild facet arthropathy. The remaining disc heights are maintained. SOFT TISSUES: Normal. No prevertebral soft tissue swelling. OTHER FINDINGS: None. IMPRESSION: Mild degenerative disc disease at C5-6. Straightening of the cervical spine may be positional or related to muscle spasm.
== END 2019-01-16 13:43 | disposition home or self-care (01) ==
LOC: C.ER 10:52
DX: M54.5 Low back pain (principal); M54.2 Cervicalgia; E11.9 Type 2 diabetes mellitus without complications; E78.5 Hyperlipidemia, unspecified; M06.9 Rheumatoid arthritis, unspecified; Z87.891 Personal history of nicotine dependence